=== PATIENT | male | born 1995 ===

== ENCOUNTER 2024-07-14 21:36 | Emergency (ER) | payer OTHER, BC, SELFPAY ==
[2024-07-14 21:52] VITALS: BP 150/79; PULSE 91; RESP 16; TEMP 37.5; O2SAT 99; BMI 27.5
--- NOTE | 2024-07-14 22:25 | ED.MALEGU ---
HPI - Male Genitourinary General Time Seen by Provider: 22:25 Date Seen: 07/14/24 Chief complaint: Urogenital Problems, Male Stated complaint: Heavy object pinched scrotum @ work Time Seen by Provider: 07/14/24 22:25 Source: patient and RN notes reviewed Mode of arrival: ambulatory Limitations: no limitations History of Present Illness HPI Narrative: This 28-year-old male is coming in with scrotal injury. He had his scrotum pinch by a tool at work at about 10:00 a.m.. He went to an emergency room in [place]. They did glue on skin that had been folded up along the edge of his left penis. It was not really of a deep laceration, just some skin that had superficially been scraped off. This was laid back down and glue placed. He had dissolvable stitches placed in the scrotum. He did not have ultrasound, his testicles never had any pain, he never had any testicular involvement. He still has no testicular pain, urinating normal, no hematuria. He did notice a small little deficit of the skin behind the scrotum tonight. His tetanus was updated in the ER today. He is to use bacitracin on the stitches but try to keep the wounds dry as is stitches are dissolvable and he does have some glue on the penile shaft. Related Data Home Medications ?Medication ?Instructions ?Recorded ?Confirmed No Known Home Medications 07/14/24 07/14/24 Allergies Allergy/AdvReac Type Severity Reaction Status Date / Time No Known Drug Allergies Allergy Verified 07/14/24 21:55 Review of Systems Status of ROS: Reports: 6 or more systems reviewed and unremarkable except as noted in History and below Exam Const: Vital Signs, click to edit/add: Vital Signs - 24 hr 07/14/24 21:52 Temperature 99.5 F Pulse Rate [Pulse Oximeter] 91 Respiratory Rate 16 Blood Pressure [Le ft Upper Arm] 150/79 H Pulse Oximetry 99 Oxygen Delivery Me thod Room Air Normal circumcised penis with some glue on the left side of the shaft, cannot really even tell where this skin deficit was. Can see the glue on the tissue however. No erythema, no ecchymosis, no bleeding. He has stitches, 3 of them, along the anterior central scrotum. Wound edges well approximated, no erythema, no drainage. On the posterior flexion of the scrotum more caudally but likely behind the other laceration in the plane of the trajectory is a small little divot in the skin. There is no active bleeding, no erythema. There is a very small v-shaped flap that goes through the epidermis just into the dermis. It really does laid down nicely. Have reviewed with the patient he is 12 hours from the injury now and this is superficial skin, there is no risk of enucleation of the testicle from this small little wound. I would favor allowing secondary healing in no suturing due to increased risk of infection at this point. It is so small that I a doubt there will be any issue. We did discuss potential of some irritation of the wound and some slight bleeding occasionally but doubt that that will be an issue. He will need to watch for infection but needs to watch for infection an all of these wounds. He is to try to keep the glue dry but we have discussed taking a Q-tip or gauze in cleaning with some water couple times a day and then applying bacitracin. I would think that this will be healed within 1-2 weeks without complication. Documenting provider has reviewed patient's vital signs: yes Course Vital Signs Vital signs: Initial Vital Signs Temperature 99.5 F 07/14/24 21:52 Temperature Source Temporal Artery Scan 07/14/24 21:52 Pulse Rate 91 07/14/24 21:52 Respiratory Rate 16 07/14/24 21:52 Blood Pressure 150/79 H 07/14/24 21:52 Blood Pressure Mean 102 07/14/24 21:52 Blood Pressure Position Sitting 07/14/24 21:52 Pulse Oximetry 99 07/14/24 21:52 Oxygen Delivery Method Room Air 07/14/24 21:52 Vital Signs Temperature 99.5 F 07/14/24 21:52 Pulse Rate 91 07/14/24 21:52 Respiratory Rate 16 07/14/24 21:52 Blood Pressure 150/79 H 07/14/24 21:52 Pulse Oximetry 99 07/14/24 21:52 Oxygen Delivery Method Room Air 07/14/24 21:52 Temperature 99.5 F 07/14/24 21:52 Pulse Rate 91 07/14/24 21:52 Respiratory Rate 16 07/14/24 21:52 Blood Pressure 150/79 H 07/14/24 21:52 Pulse Oximetry 99 07/14/24 21:52 Oxygen Delivery Method Room Air 07/14/24 21:52 Discharge Plan Discharge Clinical Impression: Laceration of scrotum Qualifiers: Encounter type: subsequent encounter Qualified Code(s): S31.31XD - Laceration without foreign body of scrotum and testes, subsequent encounter Patient Disposition: Home, Self-Care Condition: Stable Additional Instructions: Need to watch for infection. Otherwise use a little gauze or Q-tip an some water and clean the small open laceration couple times of day. I would apply bacitracin 2 to 4 times a day to this wound until healed. If there is any concern for infection, further concerns or questions about this wound, do recommend re-evaluation or follow-up. Activity Level: Activity as Tolerated Prescriptions: No Action No Known Home Medications Stand Alone Forms: [employer] Info Instructions
[2024-07-14 22:47] VITALS: BP 135/74; PULSE 85; RESP 16; TEMP 37.5; O2SAT 99
[2024-07-14 22:48] VITALS: BP 135/74; PULSE 85; RESP 16; TEMP 37.5
--- OUTSIDE RECORDS SUMMARY | 2024-07-14 22:58 | XMS_ITS | Clinical Summary ---
Author Organization [facility] Address [address] [place] [id number] Care Team Providers Care Appraisal Analyst Name Role Phone Pcp, No Primary Care Provider Unavailabl e Allergies No known active allergies Medications No known medications Active Problems No known active problems Encounters Date Type Department Care Team Description 07/14/2024 10:18 AM CDT - 07/14/2024 11:43 AM CDT Emergency [facility] [address] [place] [address] [place] [id number] Xander Kaufman MD Laceration of scrotum, initial encounter (Primary Dx) Discharge Disposition: Home Self Care 07/14/2024 Travel from Last 3 Months Immunizations Immunization Administration Dates Next Due Tdap 07/14/2024 Social History Tobacco Use Types Packs/Day Years Used Date Smoking Tobacco: Never Smokeless Tobacco: Never Sex and Gender Information Value Date Recorded Sex Assigned at Not on file Legal Sex Male 6:45 AM [employer] Gender Identity Not on file Sexual Orientation Not on file Obstetrics History Last Filed Vital Signs Vital Sign Reading Time Taken Comments Blood Pressure 166/81 07/14/2024 10:17 AM CDT Pulse 73 07/14/2024 10:17 AM CDT Temperature 36.8 C (98.3 F) 07/14/2024 10:17 AM CDT Respiratory Rate 18 07/14/2024 10:17 AM CDT Oxygen Saturation 98% 07/14/2024 10:17 AM CDT Inhaled Oxygen Concentration - - Weight 99.8 kg (220 lb) 07/14/2024 10:17 AM CDT Height 190.5 cm (6' 3) 07/14/2024 10:17 AM CDT Body Mass Index 27.5 07/14/2024 10:17 AM CDT Plan of Treatment Health Maintenance Due Date Last Done Comments Depression screening for age 12+ 2006 HIV for age 15-65 2009 Hepatitis C screening for ag e 18-79 2012 BMI (ht and wt on same day) for age 18+ 05/31/2018 05/31/2017 COVID-19 vaccine series ( - 2023- season) 2023 Influenza Vaccine (#1) 2023 Tetanus booster 07/14/2034 07/14/2024 Tdap Completed 07/14/2024 Pneumococcal series for age 6-49 Aged Out No longer eligible based on patient's age to complete this topic Insurance [facility] IN[facility]MN[facility] EDNA PADILLA Care Teams Appraisal Analyst Relationship Specialty Start Date End Date Pcp, No . PCP - General 11/17/16
== END 2024-07-14 23:00 | disposition home or self-care (01) ==
PROVIDERS: Emergency Provider Family Medicine
DX: S31.31XA Laceration without foreign body of scrotum and testes, initial encounter (principal)
CPT/HCPCS: 99282